=== PATIENT | male | born 1935 | race Caucasian/White ===

== ENCOUNTER 2017-12-13 11:25 | Emergency (ER) | payer MEDICARE ==
[2017-12-13] MEDS ORDERED: Amoxicillin/Potassium Clav 875 MG TAB ONE (11:49)
== END 2017-12-13 11:55 | disposition home or self-care (01) ==
LOC: BURERS 11:25
DX: S61.452A Open bite of left hand, initial encounter (principal); I48.91 Unspecified atrial fibrillation; E11.9 Type 2 diabetes mellitus without complications; I10 Essential (primary) hypertension; F32.9 Major depressive disorder, single episode, unspecified; Z79.82 Long term (current) use of aspirin; Z79.899 Other long term (current) drug therapy; W54.0XXA Bitten by dog, initial encounter
CPT/HCPCS: 99283

== ENCOUNTER 2017-12-16 10:27 | Emergency (ER) | payer MEDICARE ==
[2017-12-16] MEDS ORDERED: Sodium Chloride 0.9% 100 ML ONE (11:04)
[2017-12-16] MEDS ORDERED: Piperacillin/Tazobactam 3.375 GM VIAL ONE (11:04)
[2017-12-16 11:13] LABS: Hemoglobin 11.1 g/dL (14.0-18.0); Mean Corpuscular HGB CONC 32.9 g/dL (32.0-36.0); Mean Corpuscular Hemoglobin 26.3 pg (27.0-31.0); Platelet Count 66 thou/uL (130-400); RBC Distribution Width 20.8 % (11.5-14.5); Red Blood Cell (RBC) Count 4.22 mill/uL (4.70-6.10); White Blood Cell (WBC) Count 3.4 thou/uL (4.8-10.8)
[2017-12-16 11:18] LABS: Anion Gap 14 mmol/L (10-20); BUN (Urea Nitrogen) 11 mg/dL (8.4-25.7); Calc. Creatinine Clearance 0 mL/min (70-130); Calcium 9.4 mg/dL (7.8-10.44); Carbon Dioxide 26 mmol/L (23-31); Chloride 98 mmol/L (98-107); Estimated GFR-MDRD Greater than 90; Glucose 102 mg/dL (83-110); Potassium 4.1 mmol/L (3.5-5.1); Sodium 134 mmol/L (136-145)
[2017-12-16 11:30] LABS: Anisocytosis MODERATE=16-30 cells (100X) (0-5/hpf); Band 3 % (5-11); Eosinophils 2 % (0-10); Lymphocytes 22 % (21-51); MDiff Complete? YES; Monocytes 33 % (0-10); Neutrophil 40 % (42-75); PLT Morphology Comment Appears Decreased
[2017-12-16] MEDS ORDERED: Sterile Water 100 ML ONE (12:24)
== END 2017-12-16 12:49 | disposition short-term general hospital (02) ==
LOC: BURERS 10:27
DX: S61.251A Open bite of left index finger without damage to nail, initial encounter (principal); I10 Essential (primary) hypertension; F32.9 Major depressive disorder, single episode, unspecified; D61.818 Other pancytopenia; I48.91 Unspecified atrial fibrillation; Z79.899 Other long term (current) drug therapy; Z79.82 Long term (current) use of aspirin; W54.0XXA Bitten by dog, initial encounter
CPT/HCPCS: 80048; 85025; 85652; 96365; 96375; J2543; J3370; J7050

== ENCOUNTER 2018-01-21 13:39 | Emergency (ER) | payer MEDICARE ==
[2018-01-21 14:32] LABS: CKMB 0.5 ng/mL (0-6.6); Troponin I Less than 0.010 ng/mL (< 0.028)
[2018-01-21 14:37] LABS: ALT (SGPT) 10 U/L (8-55); AST (SGOT) 14 U/L (5-34); Albumin 4.1 g/dL (3.4-4.8); Alkaline Phosphatase 96 U/L (40-150); Anion Gap 14 mmol/L (10-20); BUN (Urea Nitrogen) 14 mg/dL (8.4-25.7); Bilirubin, Total 1.4 mg/dL (0.2-1.2); Calc. Creatinine Clearance 0 mL/min (70-130); Calcium 9.3 mg/dL (7.8-10.44); Chloride 99 mmol/L (98-107); Estimated GFR-MDRD Greater than 90; Globulin 3.3 g/dL (2.4-3.5); Glucose 131 mg/dL (83-110); Potassium 3.6 mmol/L (3.5-5.1); Protein, Total 7.4 g/dL (5.8-8.1); Sodium 135 mmol/L (136-145)
[2018-01-21 14:38] LABS: Anisocytosis SLIGHT = 6-15 cells (100X) (0-5/hpf); Band 3 % (5-11); Elliptocytes SLIGHT = 2-5 cells (100X) (0-1/hpf); Eosinophils 2 % (0-10); Hemoglobin 10.1 g/dL (14.0-18.0); Hypochromia SLIGHT = 6-15 cells (100X) (0-5/hpf); Lymphocytes 28 % (21-51); MDiff Complete? YES; Mean Corpuscular HGB CONC 33.5 g/dL (32.0-36.0); Mean Corpuscular Volume 77.5 fl (80.0-94.0); Mean Platelet Volume 10.7 fL (7.4-10.4); Microcytosis SLIGHT = 6-15 cells (100X) (0-5/hpf); Monocytes 16 % (0-10); Neutrophil 51 % (42-75); PLT Morphology Comment PLATELETS DECREASED ON SLIDE; Platelet Count 72 thou/uL (130-400); Poikilocytosis SLIGHT = 6-15 cells (100X) (0-5/hpf); RBC Distribution Width 21.2 % (11.5-14.5); Red Blood Cell (RBC) Count 3.89 mill/uL (4.70-6.10); Schistocytes SLIGHT = 2-5 cells (100X) (0-1/hpf); Tear Drops SLIGHT = 2-5 cells (100X) (0-1/hpf); White Blood Cell (WBC) Count 3.3 thou/uL (4.8-10.8)
[2018-01-21 14:41] LABS: Carbon Dioxide 26 mmol/L (23-31)
== END 2018-01-21 15:48 | disposition home or self-care (01) ==
LOC: BURERS 13:39
DX: R55 Syncope and collapse (principal); E11.9 Type 2 diabetes mellitus without complications; I10 Essential (primary) hypertension; I48.91 Unspecified atrial fibrillation; Z79.899 Other long term (current) drug therapy; Z79.82 Long term (current) use of aspirin
CPT/HCPCS: 36415; 80053; 82553; 83880; 84484; 85025; 93005; 96360

== ENCOUNTER 2018-03-12 09:54 | Emergency (ER) | payer MEDICARE ==
[2018-03-12 10:44] LABS: ALT (SGPT) 17 U/L (8-55); AST (SGOT) 19 U/L (5-34); Albumin 3.9 g/dL (3.4-4.8); Alkaline Phosphatase 105 U/L (40-150); Anion Gap 15 mmol/L (10-20); BUN (Urea Nitrogen) 12 mg/dL (8.4-25.7); Bilirubin, Total 1.6 mg/dL (0.2-1.2); Calc. Creatinine Clearance 0 mL/min (70-130); Calcium 9.5 mg/dL (7.8-10.44); Carbon Dioxide 23 mmol/L (23-31); Chloride 102 mmol/L (98-107); Estimated GFR-MDRD Greater than 90; Globulin 3.5 g/dL (2.4-3.5); Glucose 187 mg/dL (83-110); Potassium 3.7 mmol/L (3.5-5.1); Protein, Total 7.4 g/dL (5.8-8.1); Sodium 136 mmol/L (136-145)
[2018-03-12 10:46] LABS: CKMB 0.3 ng/mL (0-6.6); Troponin I Less than 0.010 ng/mL (< 0.028)
[2018-03-12 10:48] LABS: Hemoglobin 10.4 g/dL (14.0-18.0); Mean Corpuscular HGB CONC 34.5 g/dL (32.0-36.0); Mean Corpuscular Volume 75.3 fL (78.0-98.0); Mean Platelet Volume 9.3 fL (7.4-10.4); Platelet Count 258 thou/uL (130-400); RBC Distribution Width 18.4 % (11.5-14.5); Red Blood Cell (RBC) Count 4.01 mill/uL (4.70-6.10)
[2018-03-12 11:07] LABS: Anisocytosis SLIGHT = 6-15 cells (100X) (0-5/hpf); Band 8 % (5-11); Eosinophils 3 % (0-10); Giant Platelets SLIGHT; Large Platelets SLIGHT; Lymphocytes 8 % (21-51); MDiff Complete? YES; Metamyelocyte 1 % (0-0); Monocytes 22 % (0-10); Myelocyte 2 % (0-0); Neutrophil 56 % (42-75); PLT Morphology Comment Appears Adequate
--- NOTE | 2018-03-12 11:37 | CT ---
CT OF THE BRAIN WITHOUT CONTRAST: Date: 03/12/18 A noncontrast study was done for evaluation following trauma. No prior scans available for comparison . FINDINGS: There is an extensive amount of subdural bleeding on the left, covering the entire left cerebral tarsha sphere from front to back. Bleeding is also seen along the left side of the falx cerebri. The falx burroughs bdural is about 4.0 mm wide and subdural blood over the left frontotemporal area is 5-6 mm wide. Ther e is a more focal, slightly lens-shaped collection of blood in the left middle cranial fossa adjacent to the temporal lobe that measures 3.4 x 1.4 cm. While it resembles epidural bleeding, it seems cont iguous with the subdural blood and is probably just a collection of the same. Bleeding continues back behind the occipital lobe and over the top of the left tentorium. There is some mild compression of the left lateral ventricle. The frontal horn is displaced medially by about 1-2 mm, but there is not gross subfalcine herniation as of yet. In general, the ventricular sizes are normal for age. No acute changes seen in the right cerebrum. No skull fractures are indicated. There has been an old right parietal craniotomy. A metallic object is seen in the soft tissues of the left forehead overlying the left frontal bone. I do not know if t his is a foreign body related to the current trauma, or if it is old. Extensive mucosal thickening is seen in the sphenoid sinus on the right side. This appears more likely mucosal thickening than acute blood. Some opacification of left mastoids air cells was seen, but no fracture was seen here. This could be chronic. The right cerebral hemisphere appears roughly normal for age. There is obviously some swelling in the left cerebral hemisphere. IMPRESSION: 1. Extensive subdural bleeding over the left cerebral hemisphere from front to back and extending ov er the top of the tentorium and medial to the falx cerebri. 2. Some overall swelling in the left cerebral hemisphere with mild compression of the left lateral v entricle. There is probably about 1-2 mm of shift from left to right. 3. Metallic foreign body in soft tissues over the left forehead. This may or may not be new. 4. Other findings as listed above. Findings initially discussed with Dr. Nj at 1045 hours. Temporary written report placed at 1050 h ours. POS: HOME
--- NOTE | 2018-03-12 11:41 | CT ---
CT OF THE FACIAL BONES WITHOUT CONTRAST: Date: 03/12/[address] was done following trauma. Axial slices were acquired, then coronal and sagittal recon structions were done. See CT brain report for findings referable to subdural bleeding and swelling. FINDINGS: Regarding the facial bones, no acute facial fractures were seen. There is deviation of the anterior n librado septum to the left, but this is most likely old. No acute nasal fractures seen. Zygomatic arches appear intact. Maxillary, ethmoid, and frontal sinuses are clear, except for some minor mucosal thic kening in the ethmoids. There is substantial mucosal thickening in the right side of the sphenoid sin us. Some left mastoid opacification was seen, but no fracture was seen here. The mandible appears intact. There is considerable soft tissue swelling near the bridge of the nose a nteriorly. I would note that there is some opacification of a few of the mastoid air cells on the lef t side. I do not visualize an exact fracture here. IMPRESSION: 1. No acute facial fractures identified. 2. Deviated nasal septum towards the left, probably old. Considerable soft tissue swelling near brid ge of nose anteriorly. 3. Mucosal thickening of the right sphenoid sinus. No basilar skull fracture identified, and the fin dings look more like mucosal thickening than fresh blood. 4. Some opacification of left mastoid air cells without evidence of definite bony fracture. Findings discussed with Dr. Nj at 1045 hours. Temporary written report placed at 1050 hours. CODE CR. POS: HOME
== END 2018-03-12 11:30 | disposition short-term general hospital (02) ==
LOC: BURERS 09:54
DX: S06.5X0A Traumatic subdural hemorrhage without loss of consciousness, initial encounter (principal); I48.91 Unspecified atrial fibrillation; E11.9 Type 2 diabetes mellitus without complications; I10 Essential (primary) hypertension; F41.9 Anxiety disorder, unspecified; F32.9 Major depressive disorder, single episode, unspecified; Z79.899 Other long term (current) drug therapy; Z79.82 Long term (current) use of aspirin; W19.XXXA Unspecified fall, initial encounter
CPT/HCPCS: 36415; 70450; 70486; 80053; 82553; 83880; 84484; 85025; 93005; 94760

== ENCOUNTER 2018-03-25 20:48 | Inpatient (IN) | payer MEDICARE ==
[2018-03-26 05:45] VITALS: BMI 21.1
[2018-03-26] MEDS ORDERED: Ondansetron HCl/PF 4 MG/2 ML Vial IVP PRN (08:21)
[2018-03-26] MEDS ORDERED: Nitroglycerin 0.4 MG TAB (25 Tab Bottle) SL PRN (08:21)
[2018-03-26] MEDS ORDERED: cloNIDine 0.1 MG TAB PO PRN (08:21)
[2018-03-26] MEDS ORDERED: hydrALAZINE 20 MG/ML VIAL SLOW IVP PRN (08:21)
[2018-03-26] MEDS ORDERED: Acetaminophen 325 MG TAB PO PRN (08:21)
[2018-03-26] MEDS ORDERED: Non-Formulary Item 1 EACH (Nitrofurantoin Macrocrystal [Nitrofurantoin] 100 MG) PO SCH ×2 (09:00)
[2018-03-26] MEDS ORDERED: Non-Formulary Item 1 EACH (Omeprazole [Omeprazole] 40 MG) PO SCH (09:00)
[2018-03-26] MEDS ORDERED: Prevnar 13-Val Conj/PF 0.5 ML SYRINGE IM ONE (09:00)
[2018-03-26] MEDS ORDERED: Non-Formulary Item 1 EACH (Multivit-Min/Fa/Lycopen/Lutein [Centrum Silver Men Tablet] 1 E PO SCH (09:00)
[2018-03-26] MEDS: Nitrofurantoin Monohyd/M-Cryst 100 MG CAP PO SCH ×2 (10:08→20:45)
[2018-03-26] MEDS: Furosemide 40 MG TAB PO SCH ×2 (10:08→20:45)
[2018-03-26] MEDS: Docusate 100 MG CAP PO SCH ×2 (10:08→20:44)
[2018-03-26] MEDS: Metoprolol Tartrate 25 MG TAB PO SCH ×2 (10:09→20:45)
[2018-03-26] MEDS: Tamsulosin HCl 0.4 MG CAP PO SCH (10:09)
[2018-03-26] MEDS: Multivitamin W/ Minerals 1 TAB PO SCH (10:10)
[2018-03-26] MEDS ORDERED: Potassium Chloride 20 MEQ TAB PO SCH ×2 (11:00→17:00)
[2018-03-26] MEDS ORDERED: Dextrose 5% in Water 1,000 ML IV PRN (15:41)
[2018-03-26] MEDS ORDERED: Dextrose 50% Abboject 50 ML SYRINGE IVP PRN (15:41)
[2018-03-26] MEDS ORDERED: HumaLOG 300 UNITS/3 ML VIAL SC PRN (15:41)
[2018-03-26] MEDS: levETIRAcetam 250 MG TAB PO SCH ×2 (15:43→20:46)
[2018-03-26] MEDS ORDERED: Potassium Chloride 10 MEQ TAB PO SCH (17:00)
[2018-03-26] MEDS: HumaLOG 300 UNITS/3 ML VIAL SC PRN (17:13)
[2018-03-26] MEDS: Temazepam 15 MG CAP PO SCH (20:44)
[2018-03-26] MEDS: Gabapentin 300 MG CAP PO SCH (20:45)
[2018-03-26] MEDS: tiZANidine HCl 4 MG TAB PO SCH (20:46)
[2018-03-26] MEDS ORDERED: Non-Formulary Item 1 EACH (Tizanidine Hcl [Tizanidine Hcl] 4 MG) PO SCH (21:00)
--- NOTE | 2018-03-27 00:58 | HP ---
CHIEF COMPLAINT: Rehabilitation. HISTORY OF PRESENT ILLNESS: Mr. Kim is an 82-year-old male with atrial fibrillation on chronic anticoagulation who presented to the emergency room on 03/12/2018 status post fall. He is chronically anticoagulated with aspirin and Eliquis and approximately 2 days prior to his ER presentation, had suffered a fall and was found to have left convexity and falcine subdural hematoma with mild midline shift and moderate mass effect per emergency department imaging. His coagulation was reversed with Kcentra management and he was given FFP by the Neurosurgery team. He was monitored, but subsequently had expansion of the subdural bleed and underwent left-sided frontotemporal craniotomy by Dr. Treadwell done 03/17. Postoperatively, there was some concern about a decrease in the patient's level of alertness and therefore, the decision was made to continue the patient on Keppra. Per Neurosurgery's notes, the patient had some weakness to all four extremities that seemed to be a little bit more right-sided than left-sided but had progressed in a couple of days such that prior to his transfer, he was ambulating with the assistance of 2 therapists. He was transferred here for further rehabilitation. He denies any headache, any changes in his vision or any pain. Regarding his atrial fibrillation, his anticoagulation is being held indefinitely. The recommendation was made that neuro would have to okay resumption versus placing a Watchman and that we could continue to rate control him with a calcium channel salvatore. He also had some electrolyte dysfunction with hyponatremia and hypokalemia. The patient apparently received 4 doses of potassium on the day prior to his transfer. Some of the hyponatremia was possibly due to the Keppra. The patient also has a history of chronic diastolic heart failure and apparently was getting some IV fluids while hospitalized at [facility] with recommendations to resume his Lasix upon his hospital stay here. An echocardiogram was not done during this hospital admission. However, in 01/2018 , echocardiogram was performed showing a left ventricular ejection fraction of 50-55% with diastolic dysfunction. PAST MEDICAL HISTORY: 1. Chronic myelogenous leukemia followed by Dr. Hayward, BCR/ABL -- positive, not in remission. 2. Lumbar degenerative disk disease. 3. Insomnia. 4. Hypertension. 5. Frequent falls. 6. Benign prostatic hypertrophy with lower urinary tract symptoms. 7. Gastroesophageal reflux disease without esophagitis. 8. Hiatal hernia. 9. Atrial fibrillation. 10. Adjustment disorder. 11. Moderate tricuspid regurgitation. 12. Nocturnal hypoxemia with O2 and pulmonary hypertension. 13. History of pancreatitis. 14. Impaired glucose tolerance/diabetes. 15. Pancytopenia. 16. Hyperuricemia without history of stones or gouty arthropathy. PAST SURGICAL HISTORY: 1. Patient with a previous history of cranial surgery to remove blood clots. 2. Cholecystectomy. 3. Left Frontotemporal Craniotomy 03/17/18 (Dr. Treadwell) FAMILY HISTORY: Both parents are , his mother from cancer. He has another sibling diagnosed with cancer. He has a daughter who is living that he just recently moved to be closer who is involved in his care. SOCIAL HISTORY: Nonsmoker. No alcohol or illicit drug use. The patient, up until about a couple months ago, was able to drive. ALLERGIES: No known drug allergies. MEDICATIONS: 1. Acetaminophen 650 mg every 6 hours as needed for fever or headache. 2. Clonidine 0.1 mg every 4 hours as needed for systolic blood pressure greater than 170. 3. Cardizem-CD 180 mg p.o. daily. 4. Docusate 100 mg p.o. b.i.d. p.r.n. constipation. 5. Glucagon 1 mg intramuscular as needed for hypoglycemia. 6. Hydralazine 10 mg IV every 4 hours as needed for systolic blood pressure greater than 180. 7. Keppra 250 mg b.i.d. 8. Lopressor 12.5 mg p.o. b.i.d. 9. Nitrostat 0.4 mg sublingual every 5 minutes p.r.n. chest pain. 10. Zofran 4 mg IV q.6 hours p.r.n. nausea, vomiting. 11. Potassium chloride 40 mEq were administered every 4 hours prior to his transfer here. 12. Nitrofurantoin 100 mg p.o. b.i.d. 13. Gabapentin 300 mg p.o. at bedtime. 14. Potassium chloride 20 mEq p.o. b.i.d. 15. Tamsulosin 0.4 mg p.o. daily. 16. Multivitamin 1 daily. 17. Tizanidine 4 mg p.o. at bedtime. 18. Restoril 30 mg p.o. at bedtime. 19. Lasix 40 mg p.o. b.i.d. 20. Omeprazole 40 mg p.o. daily. REVIEW OF SYSTEMS: A full 10-system review could not be obtained from the patient at the time of examination. PHYSICAL EXAMINATION: VITAL SIGNS: Temperature 98.2, pulse 61, respirations 18, O2 sat 93% on room air, blood pressure 120/57. GENERAL: Well-developed male in no acute distress who is alert and responsive to questioning. He is oriented to person, but not place or time. He does recognize me as his physician. Even though he responds to questions, he is unable to purposefully follow commands. HEENT: Patient with a craniotomy incision to the left parietal region with todd in place and some mild ecchymosis. Pupils are equal, round, and reactive to light and accommodation. unable to follow extraocular movements. Nares are patent without discharge. NECK: Supple, without lymphadenopathy, JVD, thyromegaly or bruit. HEART: Irregularly irregular, but normal rate. No murmurs, clicks, rubs, or gallops. LUNGS: Clear to auscultation with good air entry bilaterally. No crackles or wheezes. ABDOMEN: Positive bowel sounds in all four quadrants. Soft, nontender, nondistended, no masses, guarding, or rebound tenderness. EXTREMITIES: No cyanosis, clubbing or edema. NEUROLOGIC: Unable to fully assess the patient's extremity strength, although he does move all 4 extremities and has been able to walk with assistance and sit up on the bedside. LABORATORY DATA: CBC from 03/25 white count 21.3, hemoglobin 10.1, hematocrit 31.2, platelets 147, sodium 133, potassium 3, chloride 101, bicarb 22, BUN 4, creatinine 0.54, glucose 120, calcium 9.1. LFTs normal. IMAGIN. Last brain CT performed on 03/23/2018 showed small mixed age left frontotemporal subdural hematoma surrounding the outer aspect of the left cerebral hemisphere, has not significantly changed in volume. The subdural hematomas of the interhemispheric falx and left tentorium cerebelli have decreased in volume. Focal hematomas in the left occipital region and left middle cranial fossa temporal region (uncertain whether intra-axial or subdural ) have also decreased in volume. The mass effect and subfalcine herniation have not significantly changed. 2. Chest x-ray from 03/23/2018 shows no acute intrathoracic abnormality. Lung hypoinflation. No significant edema. 3. Venogram from 03/21/2018 shows no sonographic evidence of DVT with either lower extremity. 4. Cervical spine CT from 03/12/2018 shows no evidence of fracture of the cervical spine. 5. Facial bone CT from 03/12/2018 shows no acute facial fractures, deviated nasal septum toward the left, probably old. Soft tissue swelling near the bridge of the nose anteriorly. mucosal thickening of the right sphenoid sinus. Some opacification of left mastoid air cells without evidence of definite acute bony fracture. ASSESSMENT AND PLAN: 1. Subdural hematoma, status post reversal of anticoagulation with Kcentra x1 on 03/12/2018 and FFP 03/13/2018 and a craniotomy 03/17/2018. Patient has been continued on Keppra due to a possible decrease in his orientation status post craniotomy. His anticoagulants are on hold until Neurosurgery clears. We will have PT and OT evaluate and treat the patient. 2. Chronic diastolic heart failure. The patient appeared euvolemic on exam. We will continue his Lasix and monitor his fluid balance carefully. We will get strict I's and O's and daily weights. 3. Hyponatremia/hypokalemia. We will repeat the patient's metabolic profile tomorrow and continue the patient's potassium. 4. Leukocytosis. His white count was on the rise. He was discharged on nitrofurantoin, presumably secondary to urine culture that grew out E. coli on 03/23. We will continue that b.i.d. We will recheck his CBC in the a.m. with his chronic myelogenous leukemia, the patient's baseline is usually low to normal when he is undergoing treatment. May need to consider other sources of infection and consult with his compliance representative should his white count continue to rise. The patient is currently afebrile. We will monitor. 5. Atrial fibrillation. The patient is currently rate controlled on calcium channel salvatore and beta salvatore with anticoagulation on hold. Per Cardiology, if Neurosurgery clears, he could restart anticoagulation. However, with his history of falls, it sounds like a Watchman device would be more appropriate. We will touch base with Cardiology when appropriate. 6. Benign prostatic hypertrophy. The patient will be continued on his current regimen. 7. Chronic myelocytic leukemia. Again, we are watching his white count. 8. Pulmonary hypertension with nocturnal hypoxemia. We will continue the patient on O2 at night and p.r.n. during the day. 9. Impaired glucose tolerance/diabetes. Place the patient on Accu-Cheks before meals and at bedtime with a mild and bedtime correction algorithm with Humalog. 10. Lumbar degenerative disk disease. The patient will be continued on his muscle relaxant. 11. Insomnia. The patient will be continued on his Restoril. 12. Gastroesophageal reflux disease. The patient will be continued on his PPI. 13. Prophylaxis. The patient is already on a PPI. We will place SCDs. 14. Code status: The patient remains a FULL CODE. MTDD
[2018-03-27 05:21] LABS: Anion Gap 12 mmol/L (10-20); BUN (Urea Nitrogen) 6 mg/dL (8.4-25.7); Calc. Creatinine Clearance 93 mL/min (70-130); Calcium 9.3 mg/dL (7.8-10.44); Carbon Dioxide 24 mmol/L (23-31); Chloride 105 mmol/L (98-107); Estimated GFR-MDRD Greater than 90; Glucose 125 mg/dL (83-110); Potassium 3.4 mmol/L (3.5-5.1); Sodium 138 mmol/L (136-145)
[2018-03-27 05:41] LABS: Anisocytosis SLIGHT = 6-15 cells (100X) (0-5/hpf); Band 9 % (5-11); Basophilic Stippling SLIGHT = 1-2 cells (100X) (None Seen); Eosinophils 1 % (0-10); Hemoglobin 9.5 g/dL (14.0-18.0); Hypochromia SLIGHT = 6-15 cells (100X) (0-5/hpf); Large Platelets SLIGHT; Lymphocytes 5 % (21-51); MDiff Complete? YES; Mean Corpuscular HGB CONC 34.1 g/dL (32.0-36.0); Mean Corpuscular Hemoglobin 25.7 pg (27.0-31.0); Mean Corpuscular Volume 75.4 fL (78.0-98.0); Mean Platelet Volume 12.5 fL (7.4-10.4); Monocytes 29 % (0-10); Myelocyte 2 % (0-0); Neutrophil 53 % (42-75); Nucleated RBC 2 % (0); Ovalocytes SLIGHT = 2-5 cells (100X) (0-1/hpf); PLT Morphology Comment Appears Decreased; Pappenheimer Bodies SLIGHT = 1-2 cells (100X) (None Seen); Platelet Count 120 thou/uL (130-400); Polychromasia SLIGHT = 2-3 cells (100X) (0-2/hpf); RBC Distribution Width 18.2 % (11.5-14.5); Tear Drops SLIGHT = 2-5 cells (100X) (0-1/hpf); Vacuoles SLIGHT; White Blood Cell (WBC) Count 16.5 thou/uL (4.8-10.8)
[2018-03-27] MEDS: Potassium Chloride 20 MEQ TAB PO SCH ×2 (09:48→17:43)
[2018-03-27] MEDS: Multivitamin W/ Minerals 1 TAB PO SCH (09:49)
[2018-03-27] MEDS: Furosemide 40 MG TAB PO SCH ×2 (09:49→20:59)
[2018-03-27] MEDS: Nitrofurantoin Monohyd/M-Cryst 100 MG CAP PO SCH ×2 (09:49→20:59)
[2018-03-27] MEDS: Docusate 100 MG CAP PO SCH ×2 (09:49→20:58)
[2018-03-27] MEDS: Metoprolol Tartrate 25 MG TAB PO SCH ×2 (09:50→20:59)
[2018-03-27] MEDS: Tamsulosin HCl 0.4 MG CAP PO SCH ×2 (09:50→09:57)
[2018-03-27] MEDS: levETIRAcetam 250 MG TAB PO SCH ×2 (09:57→21:01)
[2018-03-27] MEDS: HumaLOG 300 UNITS/3 ML VIAL SC PRN (13:16)
[2018-03-27] MEDS: tiZANidine HCl 4 MG TAB PO SCH (20:59)
[2018-03-27] MEDS: Gabapentin 300 MG CAP PO SCH (20:59)
[2018-03-27] MEDS: Temazepam 15 MG CAP PO SCH (21:00)
[2018-03-28 05:13] LABS: ALT (SGPT) 9 U/L (8-55); AST (SGOT) 13 U/L (5-34); Albumin 3.4 g/dL (3.4-4.8); Alkaline Phosphatase 119 U/L (40-150); Anion Gap 13 mmol/L (10-20); BUN (Urea Nitrogen) 9 mg/dL (8.4-25.7); Bilirubin, Total 1.3 mg/dL (0.2-1.2); Calc. Creatinine Clearance 79 mL/min (70-130); Calcium 9.3 mg/dL (7.8-10.44); Carbon Dioxide 25 mmol/L (23-31); Chloride 100 mmol/L (98-107); Estimated GFR-MDRD Greater than 90; Globulin 3.3 g/dL (2.4-3.5); Glucose 134 mg/dL (83-110); Potassium 3.3 mmol/L (3.5-5.1); Protein, Total 6.7 g/dL (5.8-8.1); Sodium 135 mmol/L (136-145)
[2018-03-28 05:47] LABS: Anisocytosis SLIGHT = 6-15 cells (100X) (0-5/hpf); Band 14 % (5-11); Dohle Bodies SLIGHT; Eosinophils 1 % (0-10); Hemoglobin 9.4 g/dL (14.0-18.0); Hypochromia SLIGHT = 6-15 cells (100X) (0-5/hpf); Large Platelets MODERATE; Lymphocytes 2 % (21-51); MDiff Complete? YES; Mean Corpuscular HGB CONC 33.9 g/dL (32.0-36.0); Mean Corpuscular Hemoglobin 25.9 pg (27.0-31.0); Mean Corpuscular Volume 76.3 fL (78.0-98.0); Metamyelocyte 1 % (0-0); Monocytes 40 % (0-10); Myelocyte 1 % (0-0); Neutrophil 40 % (42-75); Ovalocytes SLIGHT = 2-5 cells (100X) (0-1/hpf); PLT Morphology Comment Appears Adequate; Pappenheimer Bodies SLIGHT = 1-2 cells (100X) (None Seen); Platelet Count 140 thou/uL (130-400); Polychromasia SLIGHT = 2-3 cells (100X) (0-2/hpf); RBC Distribution Width 18.9 % (11.5-14.5); Red Blood Cell (RBC) Count 3.63 mill/uL (4.70-6.10); Vacuoles SLIGHT; White Blood Cell (WBC) Count 33.1 thou/uL (4.8-10.8)
[2018-03-28] MEDS: Potassium Chloride 20 MEQ TAB PO SCH ×2 (08:38→17:11)
[2018-03-28] MEDS: Docusate 100 MG CAP PO SCH (08:39)
[2018-03-28] MEDS: Metoprolol Tartrate 25 MG TAB PO SCH (08:41)
[2018-03-28] MEDS: Multivitamin W/ Minerals 1 TAB PO SCH (08:42)
[2018-03-28] MEDS: Nitrofurantoin Monohyd/M-Cryst 100 MG CAP PO SCH (08:43)
[2018-03-28] MEDS: Furosemide 40 MG TAB PO SCH (08:43)
[2018-03-28] MEDS: levETIRAcetam 250 MG TAB PO SCH (09:21)
[2018-03-28] MEDS: Tamsulosin HCl 0.4 MG CAP PO SCH (09:44)
[2018-03-28] MEDS ORDERED: Sodium Chloride 0.9% 30 ML ONE (12:46)
--- NOTE | 2018-03-28 13:49 | CT ---
CT OF THE BRAIN WITHOUT CONTRAST: Date: 03/28/[address] was done and compared with the prior study of 03/23/[address] [facility]. FINDINGS: The degree of subfalcine shift from left to right has decreased slightly, measuring about 6.0 mm toda y compared to 9.0 mm before. The ventricular sizes have not changed. The width of the small left frontal subdural hematoma has decreased slightly, being about 4.0 mm toda y. The hyperdense blood in the left middle cranial fossa lateral to the left temporal lobe is still p resent and still somewhat hyperdense, but the overall volume seems slightly less. Blood along the fal x cerebri is no longer very hyperdense, though the total width of the fluid collection here (which is present on both sides of the falx) seems about the same. Hyperdense blood over the tentorium on the left is still present, though the total size of the collection may be slightly less. Bleeding seen al grupo the medial aspect of the left temporoparietal lobe that is adjacent to the falx cerebri is slight ly less, though there are significant hyperdense components remaining in it. Some of the blood medial to the left occipital lobe has become less hyperdense. No new areas of bleeding are noted. No areas have substantially decreased in size. On the coronal images, there is considerable density in the superior sagittal sinus. This study is un able to assess if there might be sinus thrombosis or not. IMPRESSION: 1. The degree of subfalcine shift has decreased slightly since 03/23/18. 2. Hypodense left frontal subdural hematoma has decreased in size very slightly. 3. Left middle cranial fossa and left tentorial and parietooccipital hemorrhages are still hyperdens e. This does concern me a bit after 5 days, I would have expected them to be much more hypodense, so I cannot exclude any continuing hemorrhage. Nevertheless, the total size of each of these collections seems to have improved slightly 4. Possible increased density in the superior sagittal sinus. Findings discussed with Dr. Beckham in the ER at 1325 hours on 03/28/18. CODE CR. POS: HOME
[2018-03-28 17:17] VITALS: TEMP 100
[2018-03-28 17:30] VITALS: BP 106/62
== END 2018-03-28 13:16 | disposition critical access hospital (66) | DRG 949 ==
LOC: BURMED 21:13
PROVIDERS: ADMIT Family Medicine; ATTEND Family Medicine
DX: S06.5X9D Traumatic subdural hemorrhage with loss of consciousness of unspecified duration, subsequent encounter (principal); E87.1 Hypo-osmolality and hyponatremia; I50.32 Chronic diastolic (congestive) heart failure; C91.10 Chronic lymphocytic leukemia of B-cell type not having achieved remission; I48.91 Unspecified atrial fibrillation; Z79.01 Long term (current) use of anticoagulants; E87.6 Hypokalemia; M51.36 Other intervertebral disc degeneration, lumbar region; G47.00 Insomnia, unspecified; Z91.81 History of falling; K21.9 Gastro-esophageal reflux disease without esophagitis; F43.20 Adjustment disorder, unspecified; I27.20 Pulmonary hypertension, unspecified; N40.1 Benign prostatic hyperplasia with lower urinary tract symptoms; R09.02 Hypoxemia; E11.9 Type 2 diabetes mellitus without complications; I11.0 Hypertensive heart disease with heart failure
CPT/HCPCS: 36415; 36416; 70450; 80048; 80053; 85025; A4216; G8978-GP-CM; G8979-GP-CJ; G8987-GO-CL; G8988-GO-CI

== ENCOUNTER 2018-03-28 13:06 | Emergency (ER) | payer MEDICARE ==
[2018-03-28 13:21] LABS: Hemoglobin 10.5 g/dL (14.0-18.0); Mean Corpuscular HGB CONC 35.6 g/dL (32.0-36.0); Mean Corpuscular Hemoglobin 26.5 pg (27.0-31.0); Mean Corpuscular Volume 74.4 fL (78.0-98.0); Mean Platelet Volume 12.4 fL (7.4-10.4); Platelet Count 155 thou/uL (130-400); RBC Distribution Width 18.1 % (11.5-14.5); Red Blood Cell (RBC) Count 3.96 mill/uL (4.70-6.10); White Blood Cell (WBC) Count 43.9 thou/uL (4.8-10.8)
[2018-03-28] MEDS ORDERED: Piperacillin/Tazobactam 3.375 GM VIAL ONE (13:33)
[2018-03-28 13:34] LABS: ALT (SGPT) 9 U/L (8-55); AST (SGOT) 14 U/L (5-34); Albumin 3.5 g/dL (3.4-4.8); Alkaline Phosphatase 127 U/L (40-150); Anion Gap 13 mmol/L (10-20); BUN (Urea Nitrogen) 11 mg/dL (8.4-25.7); Bilirubin, Total 1.3 mg/dL (0.2-1.2); Calc. Creatinine Clearance 0 mL/min (70-130); Calcium 9.4 mg/dL (7.8-10.44); Carbon Dioxide 25 mmol/L (23-31); Chloride 99 mmol/L (98-107); Estimated GFR-MDRD Greater than 90; Globulin 3.6 g/dL (2.4-3.5); Glucose 119 mg/dL (83-110); Protein, Total 7.1 g/dL (5.8-8.1); Sodium 133 mmol/L (136-145)
[2018-03-28 13:35] LABS: CKMB 1.1 ng/mL (0-6.6); Troponin I Less than 0.010 ng/mL (< 0.028)
[2018-03-28 13:41] LABS: Band 9 % (5-11); Basophilic Stippling SLIGHT = 1-2 cells (100X) (None Seen); Eosinophils 1 % (0-10); Large Platelets SLIGHT; Lymphocytes 4 % (21-51); MDiff Complete? YES; Macrocytosis SLIGHT = 6-15 cells (100X) (0-5/hpf); Metamyelocyte 3 % (0-0); Microcytosis SLIGHT = 6-15 cells (100X) (0-5/hpf); Monocytes 34 % (0-10); Neutrophil 38 % (42-75); Polychromasia SLIGHT = 2-3 cells (100X) (0-2/hpf)
[2018-03-28 13:51] LABS: Bacteria/HPF Rare-Few HPF (None Seen); Bilirubin Negative (Negative); Blood, Urine Trace (Negative); Clarity Clear (Clear); Glucose, Urine (Dipstick) Negative (Negative); Leukocyte Small (Negative); Nitrite Negative (Negative); Protein, Urine (Dipstick) 30 mg/dL (Neg-Trace); RBC/HPF 0-3 HPF (0-3); Renal Epithelial None Seen HPF (0-3); Specific Gravity, Urine 1.015 (1.005-1.030); Squamous Epithelial None Seen HPF (0-3); Transitional Epithelial NONE SEEN HPF (0-3); pH, Urine 5.5 (5.0-9.0)
--- NOTE | 2018-03-28 13:51 | RAD ---
PORTABLE CHEST: Date: 03/28/18 An AP portable film at 1311 hours is compared with an 03/23/18 study from [facility]. FINDINGS: Mild cardiomegaly is present, but no worse than before. The vessels seem a little more prominent toda y, however, the depth of inspiration is not as great, so I am not convinced of congestive change. The re are no major lobar infiltrates. While it is lightly denser along the inferior aspect of the right hilum, it was before and does not really seem any worse. There are no large effusions. Degenerative c hanges are prominent in the shoulders. IMPRESSION: Minimal changes since 03/23/18. POS: HOME
[2018-03-28 13:52] LABS: Crystals/HPF 1+ AMORPH URATES HPF (Negative); Hyaline Casts/LPF NONE SEEN LPF (0-3 Hyaline); Other Casts/LPF None Seen LPF (0-3 Hyaline); Oval Fat Bodies/HPF None Seen HPF (None Seen); Sperm/HPF None Seen HPF (None Seen); Trichomonas/HPF None Seen HPF (None Seen); Yeast-All Forms None Seen HPF (None Seen)
[2018-03-28] MEDS ORDERED: Acetaminophen 325 MG TAB ONE (14:27)
[2018-03-28 14:28] LABS: INR-International Normal Ratio 1.5; PTT 54.4 SEC (22.9-36.1); Prothrombin Time 18.1 SEC (12.0-14.7)
== END 2018-03-28 14:46 | disposition short-term general hospital (02) ==
LOC: BURERS 13:06
DX: S06.5X9A Traumatic subdural hemorrhage with loss of consciousness of unspecified duration, initial encounter (principal); I48.91 Unspecified atrial fibrillation; E11.9 Type 2 diabetes mellitus without complications; I11.0 Hypertensive heart disease with heart failure; I50.9 Heart failure, unspecified; C95.90 Leukemia, unspecified not having achieved remission; F32.9 Major depressive disorder, single episode, unspecified; F41.9 Anxiety disorder, unspecified; Z79.82 Long term (current) use of aspirin; Z79.899 Other long term (current) drug therapy; Z79.4 Long term (current) use of insulin; X58.XXXA Exposure to other specified factors, initial encounter
CPT/HCPCS: 36556; 51701; 71045; 81003; 81015; 82553; 83605; 84484; 85060; 85610; 85730; 87040; 87086; 93005; 96360; 96365; 96368; 36415-59; J2543; J3370

== ENCOUNTER 2018-04-03 15:41 | Inpatient (IN) | payer MEDICARE ==
[2018-04-03] MEDS ORDERED: Lidocaine 1% 20 ML MDV ONE (20:28)
[2018-04-03] MEDS ORDERED: levETIRAcetam 500 MG/5 ML VIAL ONE (20:30)
[2018-04-03] MEDS: Metoprolol Tartrate 25 MG TAB PO SCH (21:29)
[2018-04-03] MEDS: Famotidine 20 MG TAB PO SCH (21:29)
[2018-04-03] MEDS: levETIRAcetam 500 mg/5 ml Oral Solution PO SCH (21:30)
[2018-04-03] MEDS: cefTRIAXone\\ROCEPHIN 2 GM VIAL IM SCH (21:30)
[2018-04-04] MEDS ORDERED: levETIRAcetam 500 MG/5 ML VIAL ONE (07:57)
[2018-04-04] MEDS: Famotidine 20 MG TAB PO SCH ×2 (08:34→20:30)
[2018-04-04] MEDS: Metoprolol Tartrate 25 MG TAB PO SCH ×2 (08:34→20:30)
[2018-04-04] MEDS: levETIRAcetam 500 mg/5 ml Oral Solution PO SCH ×2 (08:35→08:52)
[2018-04-04] MEDS ORDERED: Nitroglycerin 0.4 MG TAB (25 Tab Bottle) SL PRN (08:38)
[2018-04-04] MEDS ORDERED: cloNIDine 0.1 MG TAB PO PRN (08:38)
[2018-04-04] MEDS: Docusate 100 MG CAP PO SCH ×2 (08:54→20:30)
[2018-04-04] MEDS: Multivitamin W/ Minerals 1 TAB PO SCH (08:54)
[2018-04-04] MEDS: Tamsulosin HCl 0.4 MG CAP PO SCH (08:54)
[2018-04-04] MEDS ORDERED: Dextrose 5% in Water 1,000 ML IV PRN (12:43)
[2018-04-04] MEDS ORDERED: Dextrose 50% Abboject 50 ML SYRINGE SLOW IVP PRN (12:43)
[2018-04-04] MEDS ORDERED: HumaLOG 300 UNITS/3 ML VIAL SC PRN (12:43)
[2018-04-04] MEDS: cefTRIAXone\\ROCEPHIN 2 GM VIAL IM SCH (20:29)
[2018-04-04] MEDS: levETIRAcetam 250 MG TAB PO SCH (20:30)
[2018-04-05 05:48] LABS: Anion Gap 12 mmol/L (10-20); BUN (Urea Nitrogen) 6 mg/dL (8.4-25.7); Calc. Creatinine Clearance 0 mL/min (70-130); Calcium 9.1 mg/dL (7.8-10.44); Carbon Dioxide 25 mmol/L (23-31); Chloride 102 mmol/L (98-107); Estimated GFR-MDRD Greater than 90; Glucose 109 mg/dL (83-110); Potassium 3.4 mmol/L (3.5-5.1); Sodium 136 mmol/L (136-145)
[2018-04-05 06:14] LABS: Band 2 % (5-11); Hemoglobin 8.5 g/dL (14.0-18.0); Lymphocytes 18 % (21-51); MDiff Complete? YES; Mean Corpuscular HGB CONC 34.6 g/dL (32.0-36.0); Mean Corpuscular Hemoglobin 26.2 pg (27.0-31.0); Mean Corpuscular Volume 75.6 fL (78.0-98.0); Mean Platelet Volume 8.4 fL (7.4-10.4); Metamyelocyte 2 % (0-0); Microcytosis SLIGHT = 6-15 cells (100X) (0-5/hpf); Monocytes 10 % (0-10); Neutrophil 59 % (42-75); Platelet Count 88 thou/uL (130-400); RBC Distribution Width 19.1 % (11.5-14.5); Reactive Lymphocytes 9 % (0-10); Red Blood Cell (RBC) Count 3.26 mill/uL (4.70-6.10); White Blood Cell (WBC) Count 17.2 thou/uL (4.8-10.8)
[2018-04-05] MEDS: Metoprolol Tartrate 25 MG TAB PO SCH ×2 (08:53→20:54)
[2018-04-05] MEDS: Famotidine 20 MG TAB PO SCH ×2 (08:53→20:54)
[2018-04-05] MEDS: Tamsulosin HCl 0.4 MG CAP PO SCH (08:53)
[2018-04-05] MEDS: Docusate 100 MG CAP PO SCH ×2 (08:53→20:54)
[2018-04-05] MEDS: levETIRAcetam 250 MG TAB PO SCH ×2 (08:53→20:54)
[2018-04-05] MEDS: Multivitamin W/ Minerals 1 TAB PO SCH (08:58)
[2018-04-05] MEDS ORDERED: Potassium Chloride 20 MEQ TAB PO SCH ×2 (09:30→14:45)
[2018-04-05] MEDS: HumaLOG 300 UNITS/3 ML VIAL SC PRN (12:48)
[2018-04-05] MEDS: cefTRIAXone\\ROCEPHIN 2 GM VIAL IM SCH (20:53)
[2018-04-05] MEDS: Temazepam 15 MG CAP PO SCH (20:53)
[2018-04-06] MEDS: Potassium Chloride 20 MEQ TAB PO SCH (08:34)
[2018-04-06] MEDS: Metoprolol Tartrate 25 MG TAB PO SCH ×2 (08:34→20:47)
[2018-04-06] MEDS: Docusate 100 MG CAP PO SCH ×2 (08:35→20:47)
[2018-04-06] MEDS: Multivitamin W/ Minerals 1 TAB PO SCH (08:35)
[2018-04-06] MEDS: Famotidine 20 MG TAB PO SCH ×2 (08:35→20:48)
[2018-04-06] MEDS: levETIRAcetam 250 MG TAB PO SCH ×2 (08:36→20:46)
[2018-04-06] MEDS: Tamsulosin HCl 0.4 MG CAP PO SCH (08:36)
[2018-04-06] MEDS: Acetaminophen 325 MG TAB PO PRN (14:40)
[2018-04-06] MEDS: HumaLOG 300 UNITS/3 ML VIAL SC PRN (17:18)
[2018-04-06] MEDS: cefTRIAXone\\ROCEPHIN 2 GM VIAL IM SCH (20:40)
[2018-04-06] MEDS: Temazepam 15 MG CAP PO SCH (20:45)
[2018-04-07 05:35] LABS: Hemoglobin 7.9 g/dL (14.0-18.0); Mean Corpuscular HGB CONC 35.1 g/dL (32.0-36.0); Mean Corpuscular Hemoglobin 26.4 pg (27.0-31.0); Mean Corpuscular Volume 75.2 fL (78.0-98.0); Mean Platelet Volume 9.9 fL (7.4-10.4); Platelet Count 82 thou/uL (130-400); RBC Distribution Width 19.2 % (11.5-14.5); Red Blood Cell (RBC) Count 2.99 mill/uL (4.70-6.10); White Blood Cell (WBC) Count 14.5 thou/uL (4.8-10.8)
[2018-04-07 05:41] LABS: ALT (SGPT) 12 U/L (8-55); AST (SGOT) 9 U/L (5-34); Albumin 3.3 g/dL (3.4-4.8); Alkaline Phosphatase 106 U/L (40-150); Anion Gap 11 mmol/L (10-20); BUN (Urea Nitrogen) 9 mg/dL (8.4-25.7); Bilirubin, Total 0.5 mg/dL (0.2-1.2); Calc. Creatinine Clearance 97 mL/min (70-130); Calcium 9.1 mg/dL (7.8-10.44); Carbon Dioxide 26 mmol/L (23-31); Chloride 102 mmol/L (98-107); Estimated GFR-MDRD Greater than 90; Globulin 3.1 g/dL (2.4-3.5); Glucose 128 mg/dL (83-110); Potassium 3.8 mmol/L (3.5-5.1); Protein, Total 6.4 g/dL (5.8-8.1); Sodium 135 mmol/L (136-145)
[2018-04-07 05:52] LABS: Anisocytosis MODERATE=16-30 cells (100X) (0-5/hpf); Band 4 % (5-11); Basophilic Stippling SLIGHT = 1-2 cells (100X) (None Seen); Eosinophils 5 % (0-10); Lymphocytes 21 % (21-51); MDiff Complete? YES; Microcytosis SLIGHT = 6-15 cells (100X) (0-5/hpf); Monocytes 18 % (0-10); Neutrophil 52 % (42-75); PLT Morphology Comment Appears Decreased
[2018-04-07] MEDS: Potassium Chloride 20 MEQ TAB PO SCH (08:28)
[2018-04-07] MEDS: levETIRAcetam 250 MG TAB PO SCH ×2 (09:28→20:49)
[2018-04-07] MEDS: Metoprolol Tartrate 25 MG TAB PO SCH ×2 (09:28→20:49)
[2018-04-07] MEDS: Tamsulosin HCl 0.4 MG CAP PO SCH (09:28)
[2018-04-07] MEDS: Docusate 100 MG CAP PO SCH ×2 (09:29→20:49)
[2018-04-07] MEDS: Multivitamin W/ Minerals 1 TAB PO SCH (09:29)
[2018-04-07] MEDS: Famotidine 20 MG TAB PO SCH ×2 (09:56→20:49)
[2018-04-07] MEDS: cefTRIAXone\\ROCEPHIN 2 GM VIAL IM SCH (20:48)
[2018-04-07] MEDS: Temazepam 15 MG CAP PO SCH (20:49)
[2018-04-08] MEDS: Tamsulosin HCl 0.4 MG CAP PO SCH (08:42)
[2018-04-08] MEDS: levETIRAcetam 250 MG TAB PO SCH ×2 (08:42→20:29)
[2018-04-08] MEDS: Famotidine 20 MG TAB PO SCH ×2 (08:43→20:29)
[2018-04-08] MEDS: Metoprolol Tartrate 25 MG TAB PO SCH ×2 (08:43→20:29)
[2018-04-08] MEDS: Docusate 100 MG CAP PO SCH ×2 (08:44→20:29)
[2018-04-08] MEDS: Potassium Chloride 20 MEQ TAB PO SCH (08:44)
[2018-04-08] MEDS: Multivitamin W/ Minerals 1 TAB PO SCH (08:44)
[2018-04-08] MEDS ORDERED: Colchicine 0.6 MG TAB PO SCH ×2 (13:00→14:00)
[2018-04-08] MEDS: HumaLOG 300 UNITS/3 ML VIAL SC PRN (13:21)
[2018-04-08] MEDS: Temazepam 15 MG CAP PO SCH (17:03)
[2018-04-08] MEDS: cefTRIAXone\\ROCEPHIN 2 GM VIAL IM SCH (20:29)
[2018-04-09] MEDS: Potassium Chloride 20 MEQ TAB PO SCH (08:30)
[2018-04-09] MEDS: Docusate 100 MG CAP PO SCH ×2 (09:31→21:36)
[2018-04-09] MEDS: Famotidine 20 MG TAB PO SCH ×2 (09:32→21:37)
[2018-04-09] MEDS: levETIRAcetam 250 MG TAB PO SCH ×2 (09:32→21:36)
[2018-04-09] MEDS: Metoprolol Tartrate 25 MG TAB PO SCH ×2 (09:32→21:36)
[2018-04-09] MEDS: Tamsulosin HCl 0.4 MG CAP PO SCH (09:33)
[2018-04-09] MEDS: Multivitamin W/ Minerals 1 TAB PO SCH (09:33)
[2018-04-09] MEDS: Temazepam 15 MG CAP PO SCH (17:24)
[2018-04-09] MEDS ORDERED: Furosemide 20 MG TAB PO SCH (17:30)
[2018-04-09] MEDS: cefTRIAXone\\ROCEPHIN 2 GM VIAL IM SCH (21:38)
[2018-04-10] MEDS: Metoprolol Tartrate 25 MG TAB PO SCH ×2 (09:42→20:17)
[2018-04-10] MEDS: Multivitamin W/ Minerals 1 TAB PO SCH (09:43)
[2018-04-10] MEDS: Furosemide 40 MG TAB PO SCH (09:43)
[2018-04-10] MEDS: Famotidine 20 MG TAB PO SCH ×2 (09:44→20:17)
[2018-04-10] MEDS: Tamsulosin HCl 0.4 MG CAP PO SCH (09:44)
[2018-04-10] MEDS: levETIRAcetam 250 MG TAB PO SCH ×2 (09:44→20:17)
[2018-04-10] MEDS: Docusate 100 MG CAP PO SCH ×2 (09:44→20:17)
[2018-04-10] MEDS: Potassium Chloride 20 MEQ TAB PO SCH ×2 (09:46→17:22)
[2018-04-10] MEDS: traMADol HCl 50 MG TAB PO PRN (09:50)
[2018-04-10] MEDS: Temazepam 15 MG CAP PO SCH (18:09)
[2018-04-10] MEDS: cefTRIAXone\\ROCEPHIN 2 GM VIAL IM SCH (20:19)
[2018-04-10] MEDS ORDERED: Sterile Water 10 ML VIAL FS SCH (20:30)
[2018-04-10] MEDS ORDERED: Ondansetron ODT 4 MG TAB PO PRN (22:57)
[2018-04-11] MEDS: levETIRAcetam 250 MG TAB PO SCH ×2 (08:35→20:02)
[2018-04-11] MEDS: Furosemide 40 MG TAB PO SCH (08:35)
[2018-04-11] MEDS: Metoprolol Tartrate 25 MG TAB PO SCH ×2 (08:36→20:02)
[2018-04-11] MEDS: Docusate 100 MG CAP PO SCH ×2 (08:37→20:02)
[2018-04-11] MEDS: Potassium Chloride 20 MEQ TAB PO SCH ×2 (08:38→18:15)
[2018-04-11] MEDS: Tamsulosin HCl 0.4 MG CAP PO SCH (08:38)
[2018-04-11] MEDS: Multivitamin W/ Minerals 1 TAB PO SCH (08:38)
[2018-04-11] MEDS: Famotidine 20 MG TAB PO SCH (09:28)
[2018-04-11] MEDS: Temazepam 15 MG CAP PO SCH (18:15)
[2018-04-12] MEDS: Furosemide 40 MG TAB PO SCH (08:37)
[2018-04-12] MEDS: levETIRAcetam 250 MG TAB PO SCH ×2 (08:37→19:47)
[2018-04-12] MEDS: Multivitamin W/ Minerals 1 TAB PO SCH (08:37)
[2018-04-12] MEDS: Docusate 100 MG CAP PO SCH ×2 (08:37→19:47)
[2018-04-12] MEDS: Metoprolol Tartrate 25 MG TAB PO SCH ×2 (08:38→19:47)
[2018-04-12] MEDS: Tamsulosin HCl 0.4 MG CAP PO SCH (08:38)
[2018-04-12] MEDS: Potassium Chloride 20 MEQ TAB PO SCH ×2 (08:38→18:09)
[2018-04-12] MEDS: Temazepam 15 MG CAP PO SCH (18:09)
[2018-04-13] MEDS: ALPRAZolam 0.5 MG TAB PO PRN ×2 (00:34→10:05)
[2018-04-13] MEDS: Metoprolol Tartrate 25 MG TAB PO SCH ×2 (09:02→20:51)
[2018-04-13] MEDS: Furosemide 40 MG TAB PO SCH (09:03)
[2018-04-13] MEDS: levETIRAcetam 250 MG TAB PO SCH ×2 (09:03→20:51)
[2018-04-13] MEDS: Tamsulosin HCl 0.4 MG CAP PO SCH (09:03)
[2018-04-13] MEDS: Potassium Chloride 20 MEQ TAB PO SCH ×2 (09:03→17:52)
[2018-04-13] MEDS: Docusate 100 MG CAP PO SCH ×2 (09:03→20:51)
[2018-04-13] MEDS: Acetaminophen 325 MG TAB PO PRN (09:04)
[2018-04-13] MEDS: Multivitamin W/ Minerals 1 TAB PO SCH (09:04)
[2018-04-13] MEDS: Temazepam 15 MG CAP PO SCH (17:52)
[2018-04-13] MEDS: traMADol HCl 50 MG TAB PO PRN (20:55)
[2018-04-13 22:39] VITALS: BMI 26.8
[2018-04-14 05:08] LABS: Anion Gap 14 mmol/L (10-20); BUN (Urea Nitrogen) 11 mg/dL (8.4-25.7); Calc. Creatinine Clearance 89 mL/min (70-130); Calcium 9.1 mg/dL (7.8-10.44); Carbon Dioxide 24 mmol/L (23-31); Chloride 100 mmol/L (98-107); Estimated GFR-MDRD Greater than 90; Glucose 130 mg/dL (83-110); Potassium 4.1 mmol/L (3.5-5.1); Sodium 134 mmol/L (136-145)
[2018-04-14 05:27] LABS: Anisocytosis SLIGHT = 6-15 cells (100X) (0-5/hpf); Band 7 % (5-11); Eosinophils 2 % (0-10); Hemoglobin 7.7 g/dL (14.0-18.0); Lymphocytes 22 % (21-51); MDiff Complete? YES; Mean Corpuscular HGB CONC 35.6 g/dL (32.0-36.0); Mean Corpuscular Hemoglobin 27.4 pg (27.0-31.0); Mean Platelet Volume 8.3 fL (7.4-10.4); Microcytosis SLIGHT = 6-15 cells (100X) (0-5/hpf); Monocytes 37 % (0-10); Neutrophil 30 % (42-75); Ovalocytes SLIGHT = 2-5 cells (100X) (0-1/hpf); PLT Morphology Comment Appears Decreased; Platelet Count 58 thou/uL (130-400); Polychromasia SLIGHT = 2-3 cells (100X) (0-2/hpf); RBC Distribution Width 20.9 % (11.5-14.5); Reactive Lymphocytes 1 % (0-10); Red Blood Cell (RBC) Count 2.79 mill/uL (4.70-6.10); Tear Drops SLIGHT = 2-5 cells (100X) (0-1/hpf); White Blood Cell (WBC) Count 9.5 thou/uL (4.8-10.8)
[2018-04-14] MEDS: Multivitamin W/ Minerals 1 TAB PO SCH (08:44)
[2018-04-14] MEDS: Furosemide 40 MG TAB PO SCH (08:44)
[2018-04-14] MEDS: Metoprolol Tartrate 25 MG TAB PO SCH ×2 (08:45→21:09)
[2018-04-14] MEDS: Tamsulosin HCl 0.4 MG CAP PO SCH (08:45)
[2018-04-14] MEDS: Docusate 100 MG CAP PO SCH ×2 (08:45→21:09)
[2018-04-14] MEDS: Potassium Chloride 20 MEQ TAB PO SCH ×2 (08:45→17:49)
[2018-04-14] MEDS: levETIRAcetam 250 MG TAB PO SCH ×2 (08:45→21:08)
[2018-04-14] MEDS ORDERED: ALPRAZolam 0.5 MG TAB PO PRN (15:00)
[2018-04-14] MEDS: traMADol HCl 50 MG TAB PO PRN (16:56)
[2018-04-14] MEDS: Temazepam 15 MG CAP PO SCH (17:49)
[2018-04-14] MEDS: Colchicine 0.6 MG TAB PO SCH (21:07)
[2018-04-15] MEDS: traMADol HCl 50 MG TAB PO PRN ×2 (03:14→22:44)
[2018-04-15] MEDS: Tamsulosin HCl 0.4 MG CAP PO SCH (08:51)
[2018-04-15] MEDS: Furosemide 40 MG TAB PO SCH (08:51)
[2018-04-15] MEDS: Ferrous Sulfate 325 MG TAB PO SCH (08:51)
[2018-04-15] MEDS: Multivitamin W/ Minerals 1 TAB PO SCH (08:51)
[2018-04-15] MEDS: Metoprolol Tartrate 25 MG TAB PO SCH ×2 (08:52→20:15)
[2018-04-15] MEDS: Potassium Chloride 20 MEQ TAB PO SCH ×2 (08:52→17:42)
[2018-04-15] MEDS: Docusate 100 MG CAP PO SCH ×2 (08:52→20:15)
[2018-04-15] MEDS: levETIRAcetam 250 MG TAB PO SCH ×2 (08:52→20:15)
[2018-04-15] MEDS: Temazepam 15 MG CAP PO SCH (17:42)
[2018-04-15] MEDS: Colchicine 0.6 MG TAB PO SCH (20:15)
[2018-04-16] MEDS: Ferrous Sulfate 325 MG TAB PO SCH (09:00)
[2018-04-16] MEDS: Potassium Chloride 20 MEQ TAB PO SCH ×2 (09:00→18:00)
[2018-04-16] MEDS: Furosemide 40 MG TAB PO SCH (09:13)
[2018-04-16] MEDS: Docusate 100 MG CAP PO SCH ×2 (09:15→20:16)
[2018-04-16] MEDS: Multivitamin W/ Minerals 1 TAB PO SCH (09:16)
[2018-04-16] MEDS: levETIRAcetam 250 MG TAB PO SCH ×2 (09:16→20:16)
[2018-04-16] MEDS: Tamsulosin HCl 0.4 MG CAP PO SCH (09:16)
[2018-04-16] MEDS: Metoprolol Tartrate 25 MG TAB PO SCH ×2 (09:16→20:16)
[2018-04-16] MEDS: traMADol HCl 50 MG TAB PO PRN ×2 (10:28→20:22)
[2018-04-16] MEDS: Temazepam 15 MG CAP PO SCH (18:00)
[2018-04-16] MEDS: Colchicine 0.6 MG TAB PO SCH (20:16)
[2018-04-17] MEDS: Ferrous Sulfate 325 MG TAB PO SCH (08:07)
[2018-04-17] MEDS: Potassium Chloride 20 MEQ TAB PO SCH ×2 (08:07→16:56)
[2018-04-17] MEDS: Furosemide 40 MG TAB PO SCH (08:07)
[2018-04-17] MEDS: Tamsulosin HCl 0.4 MG CAP PO SCH (09:14)
[2018-04-17] MEDS: Metoprolol Tartrate 25 MG TAB PO SCH ×2 (09:14→20:23)
[2018-04-17] MEDS: Multivitamin W/ Minerals 1 TAB PO SCH (09:15)
[2018-04-17] MEDS: Docusate 100 MG CAP PO SCH ×2 (09:15→20:24)
[2018-04-17] MEDS: levETIRAcetam 250 MG TAB PO SCH ×2 (09:15→20:24)
[2018-04-17] MEDS: traMADol HCl 50 MG TAB PO PRN ×2 (13:25→20:23)
[2018-04-17 17:05] VITALS: BP 93/48; TEMP 97.7
[2018-04-17] MEDS: Temazepam 15 MG CAP PO SCH (20:24)
[2018-04-17] MEDS: Colchicine 0.6 MG TAB PO SCH (20:26)
--- NOTE | 2018-04-18 06:58 | RAD ---
PORTABLE CHEST: Date: 04/18/18 An AP portable film at 0036 hours is compared with an 03/28/18 study. FINDINGS: The patient has been intubated, but the endotracheal tube is going down the right main bronchus. It n eeds to be retracted several centimeters. Mild cardiomegaly is no different than before. No lobar consolidations or effusions seen. There is no pulmonary edema. Some crowding of the basilar lung markings is likely atelectasis. Degenerative gonzalez ges are seen in both shoulders, as well as loose bodies in the left glenohumeral joint. IMPRESSION: Endotracheal tube in right main bronchus. POS: HOME
== END 2018-04-18 03:42 | disposition short-term general hospital (02) | DRG 949 ==
LOC: BURMED 17:30
PROVIDERS: ADMIT Family Medicine; ATTEND Family Medicine
DX: S06.5X9D Traumatic subdural hemorrhage with loss of consciousness of unspecified duration, subsequent encounter (principal); G92 Toxic encephalopathy; C92.10 Chronic myeloid leukemia, BCR/ABL-positive, not having achieved remission; I50.32 Chronic diastolic (congestive) heart failure; I48.91 Unspecified atrial fibrillation; N40.0 Benign prostatic hyperplasia without lower urinary tract symptoms; Z90.49 Acquired absence of other specified parts of digestive tract; F41.9 Anxiety disorder, unspecified; F32.9 Major depressive disorder, single episode, unspecified; M10.9 Gout, unspecified; N30.90 Cystitis, unspecified without hematuria; B96.20 Unspecified Escherichia coli [E. coli] as the cause of diseases classified elsewhere; I11.0 Hypertensive heart disease with heart failure; D50.9 Iron deficiency anemia, unspecified; D69.6 Thrombocytopenia, unspecified; G47.00 Insomnia, unspecified
CPT/HCPCS: 36415; 36416; 71045; 80048; 80053; 85025; A4216; G8978-GP-CK; G8979-GP-CI; G8987-GO-CL; G8988-GO-CJ; J0696; J1953; J2001

== ENCOUNTER 2018-04-18 01:02 | Emergency (ER) | payer MEDICARE | END 2018-04-18 01:32 | disposition E | LOC: BURERS 01:02 | DX: I46.9 Cardiac arrest, cause unspecified (principal); I21.4 Non-ST elevation (NSTEMI) myocardial infarction; E11.9 Type 2 diabetes mellitus without complications; I11.0 Hypertensive heart disease with heart failure; I50.9 Heart failure, unspecified; F41.9 Anxiety disorder, unspecified; F32.9 Major depressive disorder, single episode, unspecified | CPT/HCPCS: 31500; 96374 ==